=== PATIENT | female | born 1940 | race Caucasian/White ===

== ENCOUNTER 2017-07-21 11:03 | Outpatient (CLI) | payer MEDICARE, OTHER ==
[2017-07-21 11:32] LABS: BASOPHILS % 0.6 (0.0-1.5); EOSINOPHILS % 1.7 % (0.0-6.8); MEAN CORPUSCULAR VOLUME 87.8 fl (80.0-100.0); MONOCYTES % 4.2 % (0.0-11.0); NEUTROPHILS # 8.8 # k/uL (1.4-7.7)
[2017-07-21 12:00] LABS: eGFR (African) > 60; eGFR (Non-African) > 60
== END 2017-07-21 11:04 ==
LOC: LAB 11:03
PROVIDERS: ATTEND Family Medicine
DX: I10 Essential (primary) hypertension (principal); E78.2 Mixed hyperlipidemia
CPT/HCPCS: 36415; 80053; 80061; 85025

== ENCOUNTER 2018-07-18 10:35 | Outpatient (CLI) | payer MEDICARE, OTHER ==
[2018-07-18 10:54] LABS: EOSINOPHILS % 1.7 % (0.0-6.8); MEAN CORPUSCULAR HEMOGLOBIN 31.2 pg (28.0-34.0); MONOCYTES % 6.4 % (0.0-11.0)
[2018-07-18 10:55] LABS: BASOPHILS % 0.6 (0.0-1.5); NEUTROPHILS # 7.5 # k/uL (1.4-7.7)
[2018-07-18 11:08] LABS: eGFR (Non-African) > 60
== END 2018-07-18 10:36 ==
LOC: LAB 10:35
PROVIDERS: ATTEND Family Medicine
DX: E78.2 Mixed hyperlipidemia (principal); I10 Essential (primary) hypertension
CPT/HCPCS: 36415; 80053; 80061; 85025

== ENCOUNTER 2019-07-12 10:44 | Outpatient (CLI) | payer MEDICARE, OTHER ==
[2019-07-12 11:59] LABS: BASOPHILS % 0.8 % (0.0-1.5); NEUTROPHILS # 9.4 # k/uL (1.4-7.7)
[2019-07-12 13:20] LABS: eGFR (Non-African) > 60
[2019-07-12 13:21] LABS: HDL 30 mg/dL (>40)
== END 2019-07-12 10:50 ==
LOC: RT 10:44
PROVIDERS: ATTEND Family Medicine
DX: I49.9 Cardiac arrhythmia, unspecified (principal); I10 Essential (primary) hypertension; E78.2 Mixed hyperlipidemia; R63.4 Abnormal weight loss
CPT/HCPCS: 36415; 80053; 80061; 84443; 85025; 93005

== ENCOUNTER 2019-07-31 13:36 | Outpatient (CLI) | payer MEDICARE, OTHER ==
[2019-07-31 14:01] LABS: eGFR (Non-African) > 60
== END 2019-07-31 13:41 ==
LOC: LABRHC 13:36
PROVIDERS: ATTEND Family Medicine
DX: E78.1 Pure hyperglyceridemia (principal)
CPT/HCPCS: 80048